=== PATIENT | male | born 1980 | race Caucasian/White ===

== ENCOUNTER 2017-02-27 16:32 | Emergency (ER) | payer OTHER ==
[~2017-02-27] VITALS: Ht 182.9 cm; Wt 106.0 kg
[2017-02-27 19:19] VITALS: BP 145/115
== END 2017-02-27 19:20 | disposition home or self-care (01) ==
LOC: EXP 16:32 → EME 16:32 → EXP 19:20
PROC: 3E0234Z Introduction of Serum, Toxoid and Vaccine into Muscle, Percutaneous Approach (ICD-10-PCS; principal; 2017-02-27)
DX: S61.253A Open bite of left middle finger without damage to nail, initial encounter (principal); W54.0XXA Bitten by dog, initial encounter; Y99.0 Civilian activity done for income or pay
CPT/HCPCS: 99281; 99283

== ENCOUNTER 2017-07-19 12:22 | Emergency (ER) | payer OTHER ==
[~2017-07-19] VITALS: Ht 182.9 cm; Wt 98.1 kg
[2017-07-19] MEDS ORDERED: AUGMENTIN875 MG PO (12:59)
[2017-07-19 13:12] VITALS: BP 147/90
== END 2017-07-19 13:13 | disposition home or self-care (01) ==
LOC: EME 12:22
DX: S30.871A Other superficial bite of abdominal wall, initial encounter (principal); S30.1XXA Contusion of abdominal wall, initial encounter; W54.0XXA Bitten by dog, initial encounter; Y99.0 Civilian activity done for income or pay
CPT/HCPCS: 99281; 99283